=== PATIENT | female | born 1960 | race Caucasian/White ===

== ENCOUNTER 2018-12-08 14:46 | Emergency (ER) | payer MEDICAID, OTHER ==
[2018-12-08 14:47] VITALS: BMI 39.0
[2018-12-08 15:04] VITALS: TEMP 97.9
[2018-12-08] MEDS ORDERED: Sodium Chloride 0.9% 1,000 ML IV ONE ×2 (15:37→16:46)
[2018-12-08 15:44] LABS: SQUAMOUS EPITHIAL 2 /hpf (0-5); URINE BACTERIA RARE (<OCC); URINE BILIRUBIN NEGATIVE (NEGATIVE); URINE BLOOD NEGATIVE (NEGATIVE); URINE CLARITY Hazy (Clear); URINE COLOR Yellow (YELLOW); URINE GLUCOSE (UA) 3+ mg/dL (Normal); URINE LEUKOCYTE ESTERASE NEG Leu/uL (Negative); URINE PROTEIN NEGATIVE (NEGATIVE); URINE UROBILINOGEN NORMAL mg/dL (0.2-1.0)
--- NOTE | 2018-12-08 15:44 | C.PDOC ---
History Of Present Illness 58 y/o female,w/PMhx of HTN, uncontrolled diabetes,depression, and anxiety, brought to ER by ambulance for evaluation of near-syncopal episode which occurred earlier today. Patient states that she was in court for a case in the morning. Patient reports that she began having dizziness and neck pain after climbing the stairs. She notes that her right leg gave out and she had a near- syncopal episode in court. She collapsed but did not lose consciousness and a call was placed for the ambulance. She was recently admitted here for a similar episode of dizziness w/ near syncope and atypical chest pain. She had an MRI- Brain, MRA- Head, and MRA- Neck. She also had negative cardiac work up at that time. Patient states that she has history of spinal disc disease and she has chronic cervical pain and lumbar spine pain. She is being treated with muscle relaxers. She states that her blood sugar is not well controlled. Denies having fever,chills,headache, CP, SOB, nausea,vomiting, and abdominal pain. Time Seen by Provider: 12/08/18 14:49 Chief Complaint (Nursing): Lower Extremity Problem/Injury History Per: Patient History/Exam Limitations: no limitations Onset/Duration Of Symptoms: Hrs Current Symptoms Are (Timing): Still Present Severity: Moderate Past Medical History Reviewed: Historical Data, Nursing Documentation, Vital Signs Vital Signs: Last Vital Signs Temp 97.9 F 12/08/18 14:51 Pulse 91 H 12/08/18 14:51 Resp 16 12/08/18 14:51 BP 144/82 12/08/18 14:51 Pulse Ox 96 12/08/18 14:51 - Medical History PMH: Anxiety, Arthritis, Depression, HTN, Hypercholesterolemia, Kidney Stones (x2), Chronic Kidney Disease Surgical History: No Surg Hx Family History: States: No Known Family Hx - Social History Hx Alcohol Use: No Hx Substance Use: No - Immunization History Hx Tetanus Toxoid Vaccination: No Hx Influenza Vaccination: Yes Hx Pneumococcal Vaccination: No Review Of Systems Constitutional: Negative for: Fever, Chills Cardiovascular: Negative for: Chest Pain Respiratory: Negative for: Shortness of Breath Gastrointestinal: Negative for: Nausea, Vomiting, Abdominal Pain Musculoskeletal: Positive for: Neck Pain Neurological: Positive for: Dizziness. Negative for: Weakness, Numbness, Headache Physical Exam - Physical Exam Appears: Non-toxic, No Acute Distress Skin: Normal Color, Warm, Dry, No Ecchymosis Head: Atraumatic, Normacephalic Eye(s): bilateral: Normal Inspection, PERRL, EOMI Nose: Normal Oral Mucosa: Moist Neck: Supple Chest: Symmetrical Cardiovascular: Rhythm Regular Respiratory: Normal Breath Sounds, No Rales, No Rhonchi, No Wheezing Gastrointestinal/Abdominal: Normal Exam, Soft, No Tenderness, No Guarding, No Rebound Extremity: Normal ROM, Tenderness (anterior right knee), No Deformity, No Swelling Neurological/Psych: Oriented x3, Normal Speech, Normal Motor, Normal Sensation ED Course And Treatment - Laboratory Results Result Diagrams: 12/08/18 16:16 12/08/18 16:16 Lab Interpretation: Abnormal (BUN 26, Glucose 301 then 281) O2 Sat by Pulse Oximetry: 96 (RA) Pulse Ox Interpretation: Normal - Other Rad right knee X-Ray: Viewed By Me, Read By Radiologist Interpretation: slight suprapatellar effusion, no evidence of fracture. Progress Note: Patient treated in ED with IV fluids NSS 2 liters. 5:45 now complaining of pain in her anterior right knee related to the fall. Xray ordered. Reevaluation Time: 19:08 Reassessment Condition: Improved Medical Decision Making Medical Decision Making: Plan: --Labs --UA --ECG --IV Fluids Disposition Counseled Patient/Family Regarding: Studies Performed, Diagnosis, Need For Followup - Disposition Referrals: Dangelo Short MD [Staff Provider] - Disposition: HOME/ ROUTINE Disposition Time: 19:13 Condition: IMPROVED Instructions: Near Fainting, Diabetes in Older Adults Forms: [facility] (Georgian) - Clinical Impression Clinical Impression: Near syncope, Uncontrolled diabetes mellitus - Scribe Statement The provider has reviewed the documentation as recorded by the Laneyibe Yaneth Wilkinson Provider Attestation: All medical record entries made by the Scribe were at my direction and personally dictated by me. I have reviewed the chart and agree that the record accurately reflects my personal performance of the history, physical exam, medical decision making, and the department course for this patient. I have also personally directed, reviewed, and agree with the discharge instructions and disposition.
[2018-12-08 16:22] LABS: BASO # 0.1 K/uL (0.0-0.2); BASO % 0.8 % (0.0-2.0); EOS # 0.1 K/uL (0.0-0.7); EOS % 1.3 % (0.0-4.0); HEMOGLOBIN 11.4 g/dL (11.0-16.0); LYMPH # 2.4 K/uL (1.0-4.3); LYMPH % 37.1 % (20.0-40.0); MEAN CELL VOLUME 84.1 fL (81.0-99.0); MEAN CORPUSCULAR HEMOGLOBIN 26.5 pg (27.0-31.0); MEAN CORPUSCULAR HGB CONC 31.6 g/dL (33.0-37.0); MEAN PLATELET VOLUME 8.7 fL (7.2-11.7); MONO # 0.4 K/uL (0.0-0.8); MONO % 6.2 % (0.0-10.0); NEUT # 3.6 K/uL (1.8-7.0); NEUT % 54.6 % (50.0-75.0); NRBC % 0.1 % (0.0-2.0); RBC 4.31 Mil/uL (3.80-5.20); RED CELL DISTRIBUTION WIDTH 14.9 % (11.5-14.5); WHITE BLOOD COUNT 6.6 K/uL (4.8-10.8)
[2018-12-08 16:41] LABS: ALB/GLOB RATIO 1.2 (1.0-2.1); ALBUMIN 4.4 g/dL (3.5-5.0); ALT/SGPT 21 U/L (9-52); AST/SGOT 23 U/L (14-36); BLOOD UREA NITROGEN 26 mg/dL (7-17); CALCIUM 9.5 mg/dl (8.6-10.4); GFR NON-AFRICAN AMERICAN > 60
[2018-12-08] MEDS ORDERED: Sodium Chloride 0.9% 1,000 ML ONE (17:01)
--- NOTE | 2018-12-08 18:33 | RAD ---
PROCEDURE: Right Knee Radiographs. HISTORY: injury COMPARISON: None available. FINDINGS: BONES: No acute displaced fracture. JOINTS: No dislocation. JOINT EFFUSION: Trace suprapatellar joint effusion. OTHER FINDINGS: None. IMPRESSION: Trace suprapatellar joint effusion. No acute displaced fracture or dislocation. If symptoms persist, or if there is continued clinical concern, x-ray follow-up in 7-10 days should be considered.
[2018-12-08 19:27] VITALS: BP 116/68; PULSE 76; RESP 20; O2SAT 97
== END 2018-12-08 19:36 | disposition home or self-care (01) ==
LOC: C.ER 14:46
DX: R55 Syncope and collapse (principal); E11.22 Type 2 diabetes mellitus with diabetic chronic kidney disease; I12.9 Hypertensive chronic kidney disease with stage 1 through stage 4 chronic kidney disease, or unspecified chronic kidney disease; N18.9 Chronic kidney disease, unspecified; E78.00 Pure hypercholesterolemia, unspecified
CPT/HCPCS: 73562; 80053; 81001; 82948; 85025; 96360; 99285; J7030